=== PATIENT | female | born 1950 | race Caucasian/White ===

== ENCOUNTER 2016-09-19 10:44 | Inpatient (IN) | payer MEDICARE ==
[2016-09-19] VITALS (9 sets, daily range): BP systolic 128–156; BP diastolic 62–84; PULSE 92–131; RESP 18–22; TEMP 97.1–100.8; O2SAT 91–95
[~2016-09-19] VITALS: Ht 175.3 cm; Wt 100.0 kg
[2016-09-19] MEDS ORDERED: RESP: ALBUTEROL 2.5 MG/IPRATROPIUM 0.5 MG NEB (SCH) INH ONE (11:15)
[2016-09-19] MEDS ORDERED: SODIUM CHLORIDE 0.9% FLUSH 5 ML FLUSH IVF PRN (11:15)
--- NOTE | 2016-09-19 11:17 | PD ---
HPI Chief Complaint: Respiratory Symptoms Time Seen by Provider: 11:02 Travel History International Travel<30 days: No Contact w/Intl Traveler<30days: No Traveled to known affect area: No History of Present Illness HPI This patient complains of shortness of breath. He's been having cough and congestion for several days but over the last 24 hours has become more short of breath. He has no history of lung disease. He does not have chest pain or presyncopal symptoms. He is feeling winded which is worse with exertion. He's been coughing up some thick phlegm. He is never smoked. He is vacationing from [place]. Symptoms are moderate to severe. Temp here 100.8 PFSH Past Medical History Diabetes: Yes Patient Takes Glucophage: Yes (METFORMIN 09/18/16 2200) Diminished Hearing: No Tetanus Vaccination: Unknown Influenza Vaccination: Yes Past Surgical History Surgical History: No Previous Surgery Social History Alcohol Use: No Tobacco Use: No Substance Use: No Allergies-Medications (Allergen,Severity, Reaction): Coded Allergies: No Known Allergies (Unverified , 09/19/16) Reported Meds & Prescriptions Reported Meds & Active Scripts Active Reported Mirtazapine 15 Mg Tab 15 Mg PO HS Duloxetine DR (Duloxetine HCl) 30 Mg Capdr 30 Mg PO DAILY Novolin 70-30 Inj (Insulin Human Isoph/Insulin Regular) 1,000 Unit/10 Ml Vial 1 Units SQ Metformin (Metformin HCl) 1,000 Mg Tab 1,000 Mg PO BIDPC With meals Review of Systems General / Constitutional: Positive: Fever, Chills Eyes: No: Visual changes HENT: No: Headaches Cardiovascular: Positive: Tachycardia, No: Chest Pain or Discomfort Respiratory: Positive: Cough, Shortness of Breath Gastrointestinal: No: Abdominal Pain Genitourinary: No: Dysuria Musculoskeletal: No: Pain Skin: No Rash Neurologic: No: Weakness Psychiatric: No: Depression Endocrine: No: Polydipsia Hematologic/Lymphatic: No: Easy Bruising Physical Exam Narrative GENERAL: Well-nourished, well-developed patient with shortness of breath and fever. SKIN: Warm and dry. HEAD: Atraumatic. Normocephalic. EYES: Pupils equal and round. No scleral icterus. No injection or drainage. ENT: No nasal bleeding or discharge. Mucous membranes pink and moist. NECK: Trachea midline. No JVD. No meningeal signs CARDIOVASCULAR: Regular rate and rhythm. No murmur appreciated. Heart rate 1: 15 RESPIRATORY: No accessory muscle use. Some rhonchi but no wheezes or significant crackles. Breath sounds equal bilaterally. GASTROINTESTINAL: Abdomen soft, non-tender, nondistended. Hepatic and splenic margins not palpable. MUSCULOSKELETAL: No obvious deformities. No clubbing. No cyanosis. No edema. NEUROLOGICAL: Awake and alert. No obvious cranial nerve deficits. Motor grossly within normal limits. Normal speech. PSYCHIATRIC: Appropriate mood and affect; insight and judgment normal. Data Data Last Documented VS Vital Signs Date Time Temp Pulse Resp B/P Pulse Ox O2 Delivery O2 Flow Rate FiO2 09/19/16 13:16 100.8 131 18 147/68 91 Room Air 09/19/16 12:05 2 Orders Complete Blood Count With Diff (09/19/16 11:06) Basic Metabolic Panel (Bmp) (09/19/16 11:06) Influenzae A/B Antigen (09/19/16 11:06) Iv Access Insert/Monitor (09/19/16 11:06) Electrocardiogram (09/19/16 11:06) Ecg Monitoring (09/19/16 11:06) Oximetry (09/19/16 11:06) Oxygen Administration (09/19/16 11:06) Chest, Single Ap (09/19/16 11:06) Sodium Chloride 0.9% Flush (Ns Flush) (09/19/16 11:15) Albuterol-Ipratropium Neb (Duoneb Neb) (09/19/16 11:15) Blood Culture (09/19/16 11:21) Lactic Acid (09/19/16 11:21) Ceftriaxone Inj (Rocephin Inj) (09/19/16 11:30) Acetaminophen (Tylenol) (09/19/16 11:30) Sodium Chlor 0.9% 1000 Ml Inj (Ns 1000 M (09/19/16 13:00) Diet 1800 Ada Cons Carb (09/19/16 Lunch) Vital Signs (Adult) RUMA.Q4H (09/19/16 13:09) Resp Oxygen Milad C Titrat 1-4 L (09/19/16 ) Albuterol-Ipratropium Neb (Duoneb Neb) (09/19/16 16:00) Albuterol Neb (Albuterol Neb) (09/19/16 13:15) ^ Blood Glucose Goal (Criteria (09/19/16 13:09) ^ Hypoglycemia 51 - 69 Mg/Dl (09/19/16 13:09) ^ Hypoglycemia 50 Mg/Dl Or < (09/19/16 13:09) ^ Notify Dr: Other (09/19/16 13:09) Dextrose 50% In Agustin (Vial) Inj (D50w (Vi (09/19/16 13:15) Glucagon Inj (Glucagon Inj) (09/19/16 13:15) Insulin Aspart Supplemtl Scale (Novolog (09/19/16 16:00) Ceftriaxone Inj (Rocephin Inj) (09/20/16 12:00) Acetaminophen (Tylenol) (09/19/16 13:15) Ondansetron Inj (Zofran Inj) (09/19/16 13:15) Duloxetine (Prerna Pfeiffer) (09/20/16 09:00) Mirtazapine (Remeron) (09/19/16 21:00) Admit Order (Ed Use Only) (09/19/16 13:24) Labs Laboratory Tests Test 09/19/16 09/19/16 11:30 11:50 Lactic Acid Level 3.8 mmol/L White Blood Count 17.3 TH/MM3 Red Blood Count 4.96 MIL/MM3 Hemoglobin 14.9 GM/DL Hematocrit 43.3 % Mean Corpuscular Volume 87.2 FL Mean Corpuscular Hemoglobin 30.0 PG Mean Corpuscular Hemoglobin 34.4 % Concent Red Cell Distribution Width 13.4 % Platelet Count 256 TH/MM3 Mean Platelet Volume 8.3 FL Neutrophils (%) (Auto) 86.5 % Lymphocytes (%) (Auto) 6.2 % Monocytes (%) (Auto) 6.5 % Eosinophils (%) (Auto) 0.2 % Basophils (%) (Auto) 0.6 % Neutrophils # (Auto) 15.0 TH/MM3 Lymphocytes # (Auto) 1.1 TH/MM3 Monocytes # (Auto) 1.1 TH/MM3 Eosinophils # (Auto) 0.0 TH/MM3 Basophils # (Auto) 0.1 TH/MM3 CBC Comment DIFF FINAL Differential Comment Sodium Level 139 MEQ/L Potassium Level 4.1 MEQ/L Chloride Level 100 MEQ/L Carbon Dioxide Level 27.9 MEQ/L Anion Gap 11 MEQ/L Blood Urea Nitrogen 15 MG/DL Creatinine 0.96 MG/DL Estimat Glomerular Filtration 58 ML/MIN Rate Random Glucose 229 MG/DL Calcium Level 8.3 MG/DL [facility] Medical Decision Making Medical Screen Exam Complete: Yes Emergency Medical Condition: Yes Medical Record Reviewed: Yes Differential Diagnosis Pneumonia, influenza, sepsis Narrative Course I have reviewed the patient's electronic medical record. Patient has not been here before, is visiting from [place] IV placed Blood cultures obtained followed by IV Rocephin and a dose of Tylenol I gave him a nebulizer treatment and placed him on oxygen Room air saturation was 92% Reviewed his chest x-ray which is normal Reviewed his EKG which shows sinus tachycardia without ectopy Extended cardiac monitoring reveals sinus tachycardia without ectopy CBC shows leukocytosis Metabolic profile reasonably normal Lactate is elevated at 3.8 I gave him 1 L normal saline IV. Meets criteria for severe sepsis Case reviewed in detail with Dr. Carney who will admit Sepsis Criteria SIRS Criteria (2 or more): Heart rate over 90, WBC > 98512, < 4000 or > 10% bands Sepsis Criteria (SIRS+source): Infect source susp/known Severe Sepsis (+one): Lactate >2 Criteria Outcome: Meets severe sepsis criteria Diagnosis Primary Impression: Pneumonia Qualified Code: J18.9 - Pneumonia due to infectious organism, unspecified laterality, unspecified part of lung Additional Impression: Severe sepsis Admitting Information Admitting Physician Requests: Admit Den Lee MD Sep 19, 2016 11:17
--- NOTE | 2016-09-19 11:28 | RADRPT ---
EXAM DATE/TIME: 09/19/2016 11:20 [place] COMPARISON: No previous studies available for comparison. INDICATIONS : Shortness of breath after experiencing an anxiety attack last evening. MEDICAL HISTORY : Anxiety/Panic attacks. SURGICAL HISTORY : None. ENCOUNTER: Initial ACUITY: 1 day PAIN SCORE: 7/10 LOCATION: Chest. FINDINGS: A single view of the chest demonstrates the lungs to be symmetrically aerated without evidence of mas s, infiltrate or effusion. The cardiomediastinal contours are unremarkable. Osseous structures are intact. CONCLUSION: Normal examination. Galo Chan MD on September 19, 2016 at 11:26 Board Certified Radiologist. This report was verified electronically.
[2016-09-19] MEDS ORDERED: ACETAMINOPHEN 500 MG CPLT PO ONE (11:30)
[2016-09-19] MEDS ORDERED: cefTRIAXone INJ 1,000 MG in SODIUM CHLORIDE 0.9% INJ 100 ML IV ONE (11:30)
[2016-09-19] MEDS ORDERED: METF1000 PO (12:08)
[2016-09-19] MEDS ORDERED: NOVO7030P2 SQ (12:08)
[2016-09-19] MEDS ORDERED: DULO1CAP2 PO (12:09)
[2016-09-19] MEDS ORDERED: MIRTA15 PO (12:09)
[2016-09-19 12:14] LABS: BASOPHIL # 0.1 TH/MM3 (0-0.2); BASOPHIL % 0.6 % (0.0-2.0); EOSINOPHIL % 0.2 % (0.0-4.0); HEMATOCRIT 43.3 % (35.0-46.0); HEMO FLAGS DIFF FINAL; LYMPH % 6.2 % (9.0-44.0); LYMPHOCYTE # 1.1 TH/MM3 (1.0-4.8); MEAN CELL VOLUME 87.2 FL (80.0-100.0); MEAN CORPUSCULAR HGB CONC 34.4 % (32.0-36.0); MONO % 6.5 % (0.0-8.0); NEUT % 86.5 % (16.0-70.0); PLATELET COUNT 256 TH/MM3 (150-450); RED BLOOD COUNT 4.96 MIL/MM3 (4.00-5.30); RED CELL DISTRIBUTION WIDTH 13.4 % (11.6-17.2); WHITE BLOOD COUNT 17.3 TH/MM3 (4.0-11.0)
[2016-09-19 12:33] LABS: BICARBONATE 27.9 MEQ/L (21.0-32.0); POTASSIUM 4.1 MEQ/L (3.5-5.1)
[2016-09-19] MEDS ORDERED: SODIUM CHLOR 0.9% 1000 ML INJ 1,000 ML IV ONE ×2 (13:00→13:45)
[2016-09-19] MEDS ORDERED: ONDANSETRON HCL 4 MG/2 ML VIAL IV PUSH PRN (13:15)
[2016-09-19] MEDS ORDERED: RESP: ALBUTEROL 1.25 MG/3 ML NEB (PRN) NEB (13:15)
[2016-09-19] MEDS ORDERED: ACETAMINOPHEN 325 MG TAB PO PRN (13:15)
[2016-09-19] MEDS ORDERED: GLUCAGON 1 MG/ML VIAL OTHER PRN (13:15)
[2016-09-19] MEDS ORDERED: DEXTROSE 50% IN WATER 50 ML VIAL(D50) IV PUSH PRN (13:15)
--- NOTE | 2016-09-19 13:37 | HHI.HP ---
[facility] Service [facility] Primary Care Physician Non-Staff Admission Diagnosis sepsis due to clinical pneumonia Diagnoses: (1) Pneumonia Diagnosis: Principal (2) Severe sepsis Diagnosis: Principal Chief Complaint: shortness of breath Travel History International Travel<30 Days: No Contact w/Intl Traveler <30 Da: No Traveled to Known Affected Are: No Sepsis Criteria SIRS Criteria (2 or more): Heart rate over 90, WBC > 62193, < 4000 or > 10% bands Sepsis Criteria (SIRS+source): Infect source susp/known Severe Sepsis (+one): Lactate >2 Criteria Outcome: Meets severe sepsis criteria History of Present Illness patient is a 65 y/o male with history of diabetes who presented with sob. he says that it started last night and gradually got worse. he has productive cough of whitish sputum.he had fever, chills and night sweats. he says that he' s been feeling 'sick' for the past few days with generalized weakness and flu- like symptoms. he denies any abdominal pain, chest pain. he had some nausea and a couple of episodes of emesis earlier. Review of Systems Constitutional: COMPLAINS OF: Fatigue, Fever, Chills, Night Sweats, DENIES: Weight loss Eyes: DENIES: Blurred vision, Diplopia, Vision loss, Double Vision Ears, nose, mouth, throat: DENIES: Tinnitus, Vertigo, Throat pain, Epistaxis Respiratory: COMPLAINS OF: Cough, Sputum production, Shortness of breath, DENIES: Apneas, Snoring, Wheezing, Hemoptysis Cardiovascular: DENIES: Chest pain, Palpitations, Syncope, Dyspnea on Exertion , PND, Lower Extremity Edema, Orthopnea, Claudication Gastrointestinal: COMPLAINS OF: Nausea, Vomiting, DENIES: Abdominal pain, Black stools, Bloody stools, Constipation, Diarrhea, Difficulty Swallowing, Anorexia Genitourinary: DENIES: Urinary frequency, Urgency, Hematuria, Dysuria Musculoskeletal: DENIES: Joint pain, Muscle aches, Stiffness, Joint Swelling Integumentary: DENIES: Rash Neurologic: DENIES: Abnormal gait, Headache, Localized weakness, Paresthesias, Seizures, Speech Problems, Tremor, Poor Balance Psychiatric: DENIES: Anxiety, Confusion, Mood changes, Depression, Hallucinations, Agitation, Suicidal Ideation, Homicidal Ideation, Delusions Past Family Social History Past Medical History diabetes mellitus Past Surgical History no surgeries. Reported Medications Mirtazapine 15 Mg Tab 15 Mg PO HS Duloxetine DR (Duloxetine HCl) 30 Mg Capdr 30 Mg PO DAILY Novolin 70-30 Inj (Insulin Human Isoph/Insulin Regular) 1,000 Unit/10 Ml Vial 1 Units SQ Metformin (Metformin HCl) 1,000 Mg Tab 1,000 Mg PO BIDPC With meals Allergies: Coded Allergies: No Known Allergies (Unverified , 09/19/16) Active Ordered Medications Current Medications IV Flush (NS Flush) 2 ml UNSCH PRN IVF FLUSH AFTER USING IV ACCESS; Start 09/19 at 11:15 Albuterol/ Ipratropium 1 ampule 1 ampule ONCE ONCE INH Last administered on 11:21; Start 09/19/16 at 11:15; Stop 09/19/16 at 11:16; Status DC Ceftriaxone Sodium/Sodium Chloride (Rocephin Inj/NS Inj) 100 ml @ 200 mls/hr ONCE ONCE IV Last administered on 09/19/16 11:55; Start 09/19/16 at 11:30; Stop 09/19/16 at 11:59; Status DC Acetaminophen 1000 mg 1,000 mg ONCE ONCE PO Last administered on 09/19/16 11: 55; Start 09/19/16 at 11:30; Stop 09/19/16 at 11:31; Status DC Sodium Chloride (NS 1000 ml Inj) 1,000 ml @ 2,000 mls/hr Q30M ONCE IV Last administered on 09/19/16 12:55; Start 09/19/16 at 13:00; Stop 09/19/16 at 13:29 Albuterol/ Ipratropium (Duoneb Neb) 1 ampule Q4HR NEB NEB ; Start 09/19/16 at 16:00 Albuterol Sulfate (Albuterol Neb) 1.25 mg Q2HR NEB PRN NEB SHORTNESS OF BREATH ; Start 09/19/16 at 13:15 Dextrose (D50w (Vial) Inj) 25 ml UNSCH PRN IV PUSH HYPOGLYCEMIA-SEE COMMENTS; Start 1/15/17 at 13:15 Glucagon (Glucagon Inj) 1 mg UNSCH PRN OTHER HYPOGLYCEMIA-SEE COMMENTS; Start 09/19/16 at 13:15 Insulin Aspart 1 1 ACHS SLIDING SCALE SQ ; Start 09/19/16 at 16:00 Ceftriaxone Sodium/Sodium Chloride (Rocephin Inj/NS Inj) 100 ml @ 200 mls/hr Q24H IV ; Start 09/20/16 at 12:00; Status UNV Acetaminophen (Tylenol) 650 mg Q4H PRN PO FEVER/PAIN; Start 09/19/16 at 13:15 Ondansetron HCl (Zofran Inj) 4 mg Q8HR PRN IV PUSH NAUSEA; Start 09/19/16 at 13 :15 Duloxetine HCl (Cymbalta Dr) 30 mg DAILY PO ; Start 09/20/16 at 09:00 Mirtazapine (Remeron) 15 mg HS PO ; Start 09/19/16 at 21:00 Family History not relevant to this admission. Social History no smoking or drinking. Physical Exam Vital Signs Vital Signs Date Time Temp Pulse Resp B/P Pulse Ox O2 Delivery O2 Flow Rate FiO2 09/19/16 13:16 100.8 131 18 147/68 91 Room Air 09/19/16 12:05 120 21 156/67 95 Nasal Cannula 2 09/19/16 11:27 95 Nasal Cannula 2.00 09/19/16 11:10 100.8 09/19/16 11:05 95 Nasal Cannula 2 09/19/16 10:49 97.5 131 18 147/68 91 Physical Exam GENERAL: This is a well-nourished, well-developed patient, in no apparent distress. SKIN: No rashes, ecchymoses or lesions. Cool and dry. HEAD: Atraumatic. Normocephalic. No temporal or scalp tenderness. EYES: Pupils equal round and reactive. Extraocular motions intact. No scleral icterus. No injection or drainage. ENT: Nose without bleeding, purulent drainage or septal hematoma. Throat without erythema, tonsillar hypertrophy or exudate. Uvula midline. Airway patent. NECK: Trachea midline. No JVD or lymphadenopathy. Supple, nontender, no meningeal signs. CARDIOVASCULAR: Regular rate and rhythm without murmurs, gallops, or rubs. RESPIRATORY: Clear to auscultation. Breath sounds equal bilaterally. No wheezes , rales, or rhonchi. GASTROINTESTINAL: Abdomen soft, non-tender, nondistended. No hepato-splenomegaly , or palpable masses. No guarding. MUSCULOSKELETAL: Extremities without clubbing, cyanosis, or edema. No joint tenderness, effusion, or edema noted. No calf tenderness. Negative Homans sign bilaterally. NEUROLOGICAL: Awake and alert. Cranial nerves II through XII intact. Motor and sensory grossly within normal limits. Five out of 5 muscle strength in all muscle groups. Normal speech. Laboratory Laboratory Tests Test 09/19/16 09/19/16 11:30 11:50 Lactic Acid Level 3.8 White Blood Count 17.3 Red Blood Count 4.96 Hemoglobin 14.9 Hematocrit 43.3 Mean Corpuscular Volume 87.2 Mean Corpuscular Hemoglobin 30.0 Mean Corpuscular Hemoglobin 34.4 Concent Red Cell Distribution Width 13.4 Platelet Count 256 Mean Platelet Volume 8.3 Neutrophils (%) (Auto) 86.5 Lymphocytes (%) (Auto) 6.2 Monocytes (%) (Auto) 6.5 Eosinophils (%) (Auto) 0.2 Basophils (%) (Auto) 0.6 Neutrophils # (Auto) 15.0 Lymphocytes # (Auto) 1.1 Monocytes # (Auto) 1.1 Eosinophils # (Auto) 0.0 Basophils # (Auto) 0.1 CBC Comment DIFF FINAL Differential Comment Sodium Level 139 Potassium Level 4.1 Chloride Level 100 Carbon Dioxide Level 27.9 Anion Gap 11 Blood Urea Nitrogen 15 Creatinine 0.96 Estimat Glomerular Filtration 58 Rate Random Glucose 229 Calcium Level 8.3 Date/Time Procedure Status Source Growth 09/19/16 11:50 Influenza Types A,B Antigen (RENA) - Final Complete Nasal Washing NEGATIVE FOR FLU A AND B ANTIGEN.... 09/19/16 11:45 Aerobic Blood Culture Received Blood Peripheral Pending 09/19/16 11:45 Anaerobic Blood Culture Received Blood Peripheral Pending Result Diagram: 09/19/16 1150 09/19/16 1150 Imaging CXR; normal EKG; sinus tachycardia with incomplete RBBB Assessment and Plan Assessment and Plan A/P - severe sepsis due to community-acquired pneumonia ( although there's no infiltrate on CXR) will continue with IV antibiotics- neb treatment as needed- follow the cultures-monitor temps -diabetes mellitus; hold metformin- accu-check with SSI -DVT prophylaxis with lovenox Discussed Condition With ER physician and the patient. Physician Certification 2 Midnight Certification Type: Admission for Inpatient Services Order for Inpatient Services The services are ordered in accordance with Medicare regulations or non- Medicare payer requirements, as applicable. In the case of services not specified as inpatient-only, they are appropriately provided as inpatient services in accordance with the 2-midnight benchmark. Estimated LOS (days): 2 days is the estimated time the patient will need to remain in the hospital, assuming treatment plan goals are met and no additional complications. Post-Hospital Plan: Home Problem Qualifiers (1) Pneumonia: Felipe Cheng MD Sep 19, 2016 13:36
[2016-09-19] MEDS: AZITHROMYCIN INJ 250 MG in SODIUM CHLOR 0.9% 250 ML INJ 250 ML IV SCH (14:50)
[2016-09-19] MEDS: ENOXAPARIN SODIUM 40 MG/0.4 ML SYRINGE SQ SCH (14:50)
[2016-09-19] MEDS ORDERED: RESP: ALBUTEROL 2.5 MG/IPRATROPIUM 0.5 MG NEB (PRN) NEB (16:00)
[2016-09-19] MEDS: INSULIN ASPART SUPPLEMENTAL SCALE SQ SCH ×2 (16:00→21:59)
[2016-09-19] MEDS ORDERED: RESP: ALBUTEROL 2.5 MG/IPRATROPIUM 0.5 MG NEB (SCH) NEB (16:00)
[2016-09-19] MEDS: MIRTAZAPINE 15 MG TAB PO SCH (21:59)
[2016-09-20] VITALS (8 sets, daily range): BP systolic 118–153; BP diastolic 66–81; PULSE 85–93; RESP 20; TEMP 98.1–98.9; O2SAT 94–98
[2016-09-20 05:16] LABS: AUTOMATED NEUTROPHIL # 13.4 TH/MM3 (1.8-7.7); BASOPHIL % 0.2 % (0.0-2.0); EOSINOPHIL % 0.2 % (0.0-4.0); HEMATOCRIT 35.6 % (35.0-46.0); HEMO FLAGS DIFF FINAL; LYMPH % 14.1 % (9.0-44.0); LYMPHOCYTE # 2.4 TH/MM3 (1.0-4.8); MEAN CELL VOLUME 87.2 FL (80.0-100.0); MEAN CORPUSCULAR HEMOGLOBIN 29.4 PG (27.0-34.0); MEAN CORPUSCULAR HGB CONC 33.8 % (32.0-36.0); MONO % 7.1 % (0.0-8.0); NEUT % 78.4 % (16.0-70.0); PLATELET COUNT 217 TH/MM3 (150-450); RED BLOOD COUNT 4.08 MIL/MM3 (4.00-5.30); RED CELL DISTRIBUTION WIDTH 13.4 % (11.6-17.2)
[2016-09-20] MEDS: INSULIN ASPART SUPPLEMENTAL SCALE SQ SCH ×4 (05:28→21:46)
--- NOTE | 2016-09-20 08:12 | HHI.PR ---
Subjective Remarks f/u; pneumonia resting comfortably with no distress. has occasional cough. no fever this morning. Objective Vitals Vital Signs Date Time Temp Pulse Resp B/P Pulse Ox O2 Delivery O2 Flow Rate FiO2 09/20/16 04:00 98.1 85 20 153/78 94 09/19/16 22:20 93 21 09/19/16 20:00 98.1 92 20 154/84 95 09/19/16 16:00 97.1 105 18 141/67 95 09/19/16 13:34 99.6 102 22 128/62 95 Nasal Cannula 2 09/19/16 13:16 100.8 131 18 147/68 91 Room Air 09/19/16 12:05 120 21 156/67 95 Nasal Cannula 2 09/19/16 11:27 95 Nasal Cannula 2.00 09/19/16 11:10 100.8 09/19/16 11:05 95 Nasal Cannula 2 09/19/16 10:49 97.5 131 18 147/68 91 I/O 09/19/16 09/19/16 09/19/16 09/20/16 09/20/16 09/20/16 07:00 15:00 23:00 07:00 15:00 23:00 Intake Total 1015 ml 627 ml Output Total 600 ml 800 ml Balance 415 ml -173 ml Intake Oral 480 ml 0 ml IV Total 535 ml 627 ml Output Urine Total 600 ml 800 ml Result Diagram: 09/20/16 0425 09/19/16 1150 Imaging Last Impressions Chest X-Ray 09/19/16 1106 Signed Impressions: Service Date/Time: Monday, September 19, 2016 11:20 - CONCLUSION: Normal examination. Galo Chan MD Objective Remarks GENERAL: This is a well-nourished, well-developed patient, in no apparent distress. CARDIOVASCULAR: Regular rate and regular rhythm without murmurs, gallops, or rubs. RESPIRATORY: Clear to auscultation. Breath sounds equal bilaterally. No wheezes , rales, or rhonchi. GASTROINTESTINAL: Abdomen soft, non-tender, nondistended. Normal, active bowel sounds MUSCULOSKELETAL: Extremities without clubbing, cyanosis, or edema. NEURO: Alert & Oriented x4 to person, place, time, situation. Moves all ext x4 Procedures none Medications and IVs Current Medications IV Flush (NS Flush) 2 ml UNSCH PRN IVF FLUSH AFTER USING IV ACCESS; Start 09/19 at 11:15 Albuterol/ Ipratropium 1 ampule 1 ampule ONCE ONCE INH Last administered on 11:21; Start 09/19/16 at 11:15; Stop 09/19/16 at 11:16; Status DC Ceftriaxone Sodium/Sodium Chloride (Rocephin Inj/NS Inj) 100 ml @ 200 mls/hr ONCE ONCE IV Last administered on 09/19/16 11:55; Start 09/19/16 at 11:30; Stop 09/19/16 at 11:59; Status DC Acetaminophen 1000 mg 1,000 mg ONCE ONCE PO Last administered on 09/19/16 11: 55; Start 09/19/16 at 11:30; Stop 09/19/16 at 11:31; Status DC Sodium Chloride (NS 1000 ml Inj) 1,000 ml @ 2,000 mls/hr Q30M ONCE IV Last administered on 09/19/16 12:55; Start 09/19/16 at 13:00; Stop 09/19/16 at 13:29 ; Status DC Albuterol/ Ipratropium (Duoneb Neb) 1 ampule Q4HR NEB NEB ; Start 09/19/16 at 16:00; Stop 09/19/16 at 16:00; Status DC Albuterol Sulfate (Albuterol Neb) 1.25 mg Q2HR NEB PRN NEB SHORTNESS OF BREATH ; Start 09/19/16 at 13:15; Stop 09/19/16 at 13:38; Status DC Dextrose (D50w (Vial) Inj) 25 ml UNSCH PRN IV PUSH HYPOGLYCEMIA-SEE COMMENTS; Start 09/19/16 at 13:15 Glucagon (Glucagon Inj) 1 mg UNSCH PRN OTHER HYPOGLYCEMIA-SEE COMMENTS; Start 09/19/16 at 13:15 Insulin Aspart 1 1 ACHS SLIDING SCALE SQ Last administered on 09/20/16 05:28 ; Start 09/19/16 at 16:00 Ceftriaxone Sodium/Sodium Chloride (Rocephin Inj/NS Inj) 100 ml @ 200 mls/hr Q24H IV ; Start 09/20/16 at 12:00 Acetaminophen (Tylenol) 650 mg Q4H PRN PO FEVER/PAIN; Start 09/19/16 at 13:15 Ondansetron HCl (Zofran Inj) 4 mg Q8HR PRN IV PUSH NAUSEA; Start 09/19/16 at 13 :15 Duloxetine HCl (Cymbalta Dr) 30 mg DAILY PO ; Start 09/20/16 at 09:00 Mirtazapine (Remeron) 15 mg HS PO Last administered on 09/19/16 21:59; Start 09/19/16 at 21:00 Enoxaparin Sodium (Lovenox Inj) 40 mg Q24H SQ Last administered on 09/19/16 14 :50; Start 09/19/16 at 14:00 Albuterol/ Ipratropium 1 ampule 1 ampule Q4HR NEB PRN NEB SHORTNESS OF BREATH; Start 09/19/16 at 16:00 Azithromycin 250 mg/Sodium Chloride 250 ml @ 250 mls/hr Q24H IV Last administered on 09/19/16 14:50; Start 09/19/16 at 14:00 Sodium Chloride (NS 1000 ml Inj) 1,000 ml @ 100 mls/hr Q10H ONCE IV Last administered on 09/19/16 14:50; Start 09/19/16 at 13:45; Stop 09/19/16 at 23:44 ; Status DC A/P Assessment and Plan A/P - severe sepsis due to community-acquired pneumonia ( although CXR was reported normal) will continue with IV antibiotics- neb treatment as needed- follow the cultures-monitor temps-CBC in am -diabetes mellitus; hold metformin- accu-check with SSI -DVT prophylaxis with lovenox Felipe Cheng MD Sep 20, 2016 08:12
[2016-09-20] MEDS: DULoxetine HCl DR 30 MG CAP PO SCH (09:18)
[2016-09-20] MEDS: cefTRIAXone INJ 1,000 MG in SODIUM CHLORIDE 0.9% INJ 100 ML IV SCH (11:33)
[2016-09-20] MEDS: ENOXAPARIN SODIUM 40 MG/0.4 ML SYRINGE SQ SCH (14:09)
[2016-09-20] MEDS: AZITHROMYCIN INJ 250 MG in SODIUM CHLOR 0.9% 250 ML INJ 250 ML IV SCH (14:10)
--- NOTE | 2016-09-20 19:45 | EKG ---
Date Performed: 09/19/2016 Time Performed: 11:09:50 PTAGE: 65 years EKG: SINUS TACHYCARDIA WITH SHORT TN INTERVAL POSSIBLE LEFT ATRIAL ENLARGEMENT MARKED LEFT AXIS DEVIATION INCOMPLETE RIGHT BUNDLE BRANCH BLOCK NONSPECIFIC T-WAVE ABNORMALITY ABNORMAL ECG NO PREVIOUS TRACING DOCTOR: Silviano James Interpretating Date/Time 09/20/2016 19:37:58
[2016-09-20] MEDS: MIRTAZAPINE 15 MG TAB PO SCH (21:45)
[2016-09-21] VITALS (8 sets, daily range): BP systolic 91–173; BP diastolic 52–79; PULSE 82–98; RESP 18–20; TEMP 97.7–99.4; O2SAT 93–98
[2016-09-21 04:10] LABS: AUTOMATED NEUTROPHIL # 7.5 TH/MM3 (1.8-7.7); BASOPHIL % 0.2 % (0.0-2.0); EOSINOPHIL # 0.1 TH/MM3 (0-0.4); EOSINOPHIL % 1.2 % (0.0-4.0); HEMATOCRIT 35.8 % (35.0-46.0); HEMO FLAGS DIFF FINAL; LYMPH % 14.5 % (9.0-44.0); LYMPHOCYTE # 1.5 TH/MM3 (1.0-4.8); MEAN CELL VOLUME 87.4 FL (80.0-100.0); MEAN CORPUSCULAR HGB CONC 34.4 % (32.0-36.0); MONO % 9.2 % (0.0-8.0); NEUT % 74.9 % (16.0-70.0); PLATELET COUNT 218 TH/MM3 (150-450); RED BLOOD COUNT 4.09 MIL/MM3 (4.00-5.30); RED CELL DISTRIBUTION WIDTH 13.4 % (11.6-17.2); WHITE BLOOD COUNT 10.1 TH/MM3 (4.0-11.0)
[2016-09-21] MEDS: INSULIN ASPART SUPPLEMENTAL SCALE SQ SCH ×4 (06:01→20:21)
[2016-09-21] MEDS: metFORMIN HCL 500 MG TAB PO SCH ×2 (10:09→18:49)
[2016-09-21] MEDS: DULoxetine HCl DR 30 MG CAP PO SCH (10:09)
[2016-09-21] MEDS: AZITHROMYCIN INJ 250 MG in SODIUM CHLOR 0.9% 250 ML INJ 250 ML IV SCH (12:36)
[2016-09-21] MEDS: cefTRIAXone INJ 1,000 MG in SODIUM CHLORIDE 0.9% INJ 100 ML IV SCH (14:44)
[2016-09-21] MEDS: ENOXAPARIN SODIUM 40 MG/0.4 ML SYRINGE SQ SCH (14:54)
--- NOTE | 2016-09-21 17:26 | HHI.PR ---
Subjective Remarks Follow-up sepsis. He feels tired which he relates to his constant coughing depriving him of sleep. Discussed with RN Objective Vitals Vital Signs Date Time Temp Pulse Resp B/P Pulse Ox O2 Delivery O2 Flow Rate FiO2 09/21/16 12:51 98.7 82 18 137/63 96 09/21/16 12:46 97.9 83 19 91/53 98 09/21/16 08:28 99.4 88 20 133/71 94 09/21/16 04:00 97.8 91 20 124/52 93 09/21/16 00:00 97.7 92 20 160/69 93 09/20/16 20:00 98.6 93 20 95 148/70 09/20/16 18:18 97 21 I/O 09/20/16 09/20/16 09/20/16 09/21/16 09/21/16 09/21/16 07:00 15:00 23:00 07:00 15:00 23:00 Intake Total 627 ml 600 ml 240 ml 120 ml Output Total 800 ml 800 ml 300 ml 400 ml Balance -173 ml -200 ml -60 ml -280 ml Intake Oral 0 ml 600 ml 240 ml 120 ml IV Total 627 ml 0 ml 0 ml Output Urine Total 800 ml 800 ml 300 ml 400 ml # Bowel Movements 1 1 Result Diagram: 09/21/16 0325 09/19/16 1150 Objective Remarks GENERAL: This is a well-nourished, well-developed patient, in no apparent distress. CARDIOVASCULAR: Regular rate and rhythm without murmurs, gallops, or rubs. RESPIRATORY: Clear to auscultation. Breath sounds equal bilaterally. No wheezes , rales, or rhonchi. GASTROINTESTINAL: Abdomen soft, non-tender, nondistended. Normal active bowel sounds MUSCULOSKELETAL: Extremities without clubbing, cyanosis, or edema. NEURO: Alert & Oriented x4 to person, place, time, situation. Moves all ext x4 Procedures none A/P Problem List: (1) Severe sepsis ICD Code: A41.9 Status: Acute Assessment and Plan - severe sepsis from pulmonary source will continue with IV Zithromax and Rocephin- neb treatment as needed- follow the cultures-monitor temps-CBC with improved leukocytosis. Add mucolytics and antitussives. - diabetes mellitus; uncontrolled restart metformin- accu-check with SSI - DVT prophylaxis with lovenox Discharge Planning Possible discharge in the morning Clive Javed MD Sep 21, 2016 17:26
[2016-09-21] MEDS ORDERED: ZITH250T PO (17:29)
[2016-09-21] MEDS ORDERED: CEFT500T3 PO (17:29)
--- NOTE | 2016-09-21 17:29 | HHI.DCPOC ---
Discharge Care Plan Diagnosis: (1) Severe sepsis Your Health Problems Are: Difficulty with ADL Exercise Tolerance Goals to Promote Your Health * To prevent worsening of your condition and complications * To maintain your health at the optimal level Directions to Meet Your Goals Take your medications as prescribed Follow your dietary instruction Follow activity as directed Keep your appointments as scheduled Take your immunizations and boosters as scheduled If your symptoms worsen call your PCP, if no PCP go to Urgent Care Center or Emergency Room Smoking is Dangerous to Your Health. Avoid second hand smoke Call the 24-hour hour crisis hotline for domestic abuse at Clive Javed MD Sep 21, 2016 17:29
[2016-09-21] MEDS: guaiFENesin E.R. 600 MG TAB PO SCH (20:21)
[2016-09-21] MEDS: BENZONATATE 100 MG CAP PO PRN (20:21)
[2016-09-21] MEDS: MIRTAZAPINE 15 MG TAB PO SCH (20:21)
[2016-09-21] MEDS: guaiFENesin/CODEINE SYRUP 200 MG/20 MG/10 ML CUP PO PRN (22:02)
[2016-09-22] VITALS: BP 151/76; PULSE 81; RESP 17; TEMP 97; O2SAT 95
[2016-09-22] MEDS: guaiFENesin/CODEINE SYRUP 200 MG/20 MG/10 ML CUP PO PRN ×3 (01:31→08:37)
[2016-09-22 04:00] VITALS: BP 133/61; PULSE 89; RESP 17; TEMP 99; O2SAT 95
[2016-09-22] MEDS: INSULIN ASPART SUPPLEMENTAL SCALE SQ SCH (06:07)
[2016-09-22 08:00] VITALS: BP 153/66; PULSE 88; RESP 19; TEMP 98.2; O2SAT 94
[2016-09-22] MEDS: DULoxetine HCl DR 30 MG CAP PO SCH (08:37)
[2016-09-22] MEDS: BENZONATATE 100 MG CAP PO PRN (08:37)
[2016-09-22] MEDS: metFORMIN HCL 500 MG TAB PO SCH (08:38)
[2016-09-22] MEDS: guaiFENesin E.R. 600 MG TAB PO SCH (08:38)
[2016-09-22 09:15] VITALS: O2SAT 94
--- NOTE | 2016-09-22 11:56 | HHI.PR ---
Subjective Remarks Follow-up sepsis. Improving weakness. Ambulating in the room without problems. On room air. Seen with . Discussed with RN Objective Vitals Vital Signs Date Time Temp Pulse Resp B/P Pulse Ox O2 Delivery O2 Flow Rate FiO2 09/22/16 09:15 94 21 09/22/16 08:00 98.2 88 19 153/66 94 09/22/16 04:00 99.0 89 17 133/61 95 09/22/16 00:00 97.0 81 17 151/76 95 09/21/16 20:00 92 09/21/16 20:00 97.8 98 18 173/79 95 09/21/16 18:09 96 21 09/21/16 15:30 98.6 83 18 152/72 93 09/21/16 12:51 98.7 82 18 137/63 96 09/21/16 12:46 97.9 83 19 91/53 98 I/O 09/21/16 09/21/16 09/21/16 09/22/16 09/22/16 09/22/16 07:00 15:00 23:00 07:00 15:00 23:00 Intake Total 120 ml 480 ml 240 ml 120 ml Output Total 400 ml 300 ml Balance -280 ml 180 ml 240 ml 120 ml Intake Oral 120 ml 480 ml 240 ml 120 ml IV Total 0 ml 0 ml Output Urine Total 400 ml 300 ml # Voids 2 Result Diagram: 09/21/16 0325 09/19/16 1150 Objective Remarks GENERAL: This is a well-nourished, well-developed patient, in no apparent distress. CARDIOVASCULAR: Regular rate and rhythm without murmurs, gallops, or rubs. RESPIRATORY: Clear to auscultation. Breath sounds equal bilaterally. No wheezes , rales, or rhonchi. GASTROINTESTINAL: Abdomen soft, non-tender, nondistended. Normal active bowel sounds MUSCULOSKELETAL: Extremities without clubbing, cyanosis, or edema. NEURO: Alert & Oriented x4 to person, place, time, situation. Moves all ext x4 Procedures none A/P Problem List: (1) Severe sepsis ICD Code: A41.9 Status: Acute Assessment and Plan - severe sepsis from pulmonary source Improved switch IV Zithromax and Rocephin to by mouth- neb treatment as needed - follow the cultures negative to date-monitor temps-CBC with improved leukocytosis. Added mucolytics and antitussives. - diabetes mellitus; uncontrolled restarted metformin with improvement of hyperglycemia- accu-check with SSI - DVT prophylaxis with lovenox Discharge Planning Stable for discharge Clive Javed MD Sep 22, 2016 11:56
[2016-09-22] MEDS ORDERED: MUCI600T PO (11:58)
[2016-09-22] MEDS ORDERED: GUAI100S5 PO (11:58)
--- NOTE | 2016-09-22 11:59 | HHI.DS ---
Discharge Summary Admission Date Sep 19, 2016 at 13:26 Discharge Date: Sep 22, 2016 Admitting Diagnosis sepsis due to clinical pneumonia (1) Severe sepsis ICD Code: A41.9 Diagnosis: Principal Procedures none Brief History - From Admission patient is a 65 y/o male with history of diabetes who presented with sob. he says that it started last night and gradually got worse. he has productive cough of whitish sputum.he had fever, chills and night sweats. he says that he' s been feeling 'sick' for the past few days with generalized weakness and flu- like symptoms. he denies any abdominal pain, chest pain. he had some nausea and a couple of episodes of emesis earlier. CBC/BMP: 09/21/16 0325 09/19/16 1150 Significant Findings Laboratory Tests Test 09/19/16 09/20/16 09/21/16 13:30 04:25 03:25 Lactic Acid Level 2.9 mmol/L (0.4-2.0) White Blood Count 17.0 TH/MM3 (4.0-11.0) Neutrophils (%) (Auto) 78.4 % 74.9 % (16.0-70.0) (16.0-70.0) Neutrophils # (Auto) 13.4 TH/MM3 (1.8-7.7) Monocytes # (Auto) 1.2 TH/MM3 (0-0.9) Monocytes (%) (Auto) 9.2 % (0.0-8.0) Imaging Last Impressions Chest X-Ray 09/19/16 1106 Signed Impressions: Service Date/Time: Monday, September 19, 2016 11:20 - CONCLUSION: Normal examination. Galo Chan MD PE at Discharge GENERAL: This is a well-nourished, well-developed patient, in no apparent distress. CARDIOVASCULAR: Regular rate and rhythm without murmurs, gallops, or rubs. RESPIRATORY: Clear to auscultation. Breath sounds equal bilaterally. No wheezes , rales, or rhonchi. GASTROINTESTINAL: Abdomen soft, non-tender, nondistended. Normal active bowel sounds MUSCULOSKELETAL: Extremities without clubbing, cyanosis, or edema. NEURO: Alert & Oriented x4 to person, place, time, situation. Moves all ext x4 Hospital Course - severe sepsis from pulmonary source Improved switch IV Zithromax and Rocephin to by mouth- neb treatment as needed - follow the cultures negative to date-monitor temps-CBC with improved leukocytosis. Added mucolytics and antitussives. - diabetes mellitus; uncontrolled restarted metformin with improvement of hyperglycemia- accu-check with SSI - DVT prophylaxis with lovenox Pt Condition on Discharge: Stable Discharge Disposition: Discharge Home Discharge Time: <= 30 minutes Discharge Instructions DIET: Follow Instructions for: Heart Healthy Diet, Diabetic Diet Activities you can perform: Regular-No Restrictions Activities to Avoid: Driving Follow up Referrals: PCP Follow-up - 1 Week New Medications: Azithromycin (Zithromax) 250 Mg Tab 250 MG PO DAILY Infection #2 Ref 0 TAB Cefuroxime (Ceftin) 500 Mg Tab 500 MG PO BID Infection #20 Ref 0 TAB Guaifenesin ER 12 HR (Mucinex ER 12 HR) 600 Mg Rosendo 600 MG PO BID cough #20 TAB Guaifenesin-Codeine Liq (Guaifenesin-Codeine Liq) 100-10 Mg/5 Ml Soln 10 ML PO Q4H PRN COUGH #180 ML Continued Medications: Duloxetine DR (Duloxetine DR) 30 Mg Capdr 30 MG PO DAILY #30 Ref 0 CAP Insulin Human Isophane-Regular 70-30 Inj (Novolin 70-30 Inj) 1,000 Unit/10 Ml Vial 1 UNITS SQ Blood Sugar Management Ref 0 ML Metformin (Metformin) 1,000 Mg Tab 1000 MG PO BIDPC With meals Blood Sugar Management #60 Ref 0 TAB Mirtazapine (Mirtazapine) 15 Mg Tab 15 MG PO HS Depression Control #30 Ref 0 TAB Clive Javed MD Sep 22, 2016 11:58
[2016-09-22 12:00] VITALS: BP 113/63; PULSE 89; RESP 17; TEMP 98.5; O2SAT 95
== END 2016-09-22 13:09 | disposition home or self-care (01) | DRG 871 ==
LOC: NEPC 10:44 → NEDA 13:26 → N07B 15:28
PROVIDERS: ADMIT Internal Medicine; ATTEND Internal Medicine
DX: A41.9 Sepsis, unspecified organism (principal); J18.9 Pneumonia, unspecified organism; R65.20 Severe sepsis without septic shock; R01.1 Cardiac murmur, unspecified; E11.65 Type 2 diabetes mellitus with hyperglycemia; Z79.4 Long term (current) use of insulin
CPT/HCPCS: 71010; 80048; 82948; 83605; 85025; 87040; 87804; 93005; 94664; 96374; J0456; J0696; J1650; J1815; J7030; J7050